=== PATIENT | female | born 1985 | race Caucasian/White ===

== ENCOUNTER 2018-05-07 16:54 | Emergency (ER) | payer BC, OTHER ==
[2018-05-07 17:25] VITALS: BP 132/83; PULSE 93; RESP 18; TEMP 98.7
[2018-05-07] MEDS ORDERED: PENICILLIN V POTASSIUM 250 MG TAB PO STA (18:10)
--- NOTE | 2018-05-07 18:21 | ED ---
ENT HPI - General Chief complaint: Dental/Oral Stated complaint: DENTAL PAIN Time Seen by Provider: 05/07/18 17:59 Source: patient, RN notes reviewed Mode of arrival: ambulatory Limitations: no limitations - History of Present Illness Initial comments: This is a 32-year-old female who presents to emergency department with chief complaint of dental pain. Patient reports right upper dental pain that started today. She states that she recently moved to the area and does not have a dentist. Denies fevers or chills. Does report upper mandible pain. Denies drainage. - Related Data Home Medications Medication Instructions Recorded Confirmed ALPRAZolam [Xanax] 1 mg PO DAILY PRN 11/08/15 11/08/15 FLUoxetine HCL [PROzac] 20 mg PO DAILY 11/08/15 11/08/15 traMADol HCL [Ultram] 50 mg PO BID PRN 11/08/15 11/08/15 Allergies Allergy/AdvReac Type Severity Reaction Status Date / Time No Known Allergies Allergy Verified 11/08/15 19:22 Review of Systems ROS Statement: Those systems with pertinent positive or pertinent negative responses have been documented in the HPI. ROS Other: All systems not noted in ROS Statement are negative. Constitutional: Denies: fever, chills ENT: Reports: dental pain. Denies: ear pain, throat pain Gastrointestinal: Denies: nausea, vomiting Neurological: Denies: headache Past Medical History Additional Past Medical History / Comment(s): migraine kumari History of Any Multi-Drug Resistant Organisms: None Reported Past Surgical History: Section, Tubal Ligation Past Psychological History: Anxiety, Depression Smoking Status: Current every day smoker Past Alcohol Use History: None Reported Past Drug Use History: None Reported General Exam - General Exam Comments Initial Comments: General: Awake and alert, well-developed; in no apparent distress. HEENT: Head atraumatic, normocephalic. Pupils are equal, round and reactive to light. Extraocular movements intact. Oropharynx moist with poor dentition throughout. Multiple dental caries and missing teeth. There is a small area of fluctuance gumline of tooth #6. No active drainage. Neck: Supple. Normal ROM. Cardiovascular: Regular rate and rhythm. No murmurs, rubs or gallops. Chest symmetrical. Respiratory: Lungs clear to auscultation bilaterally. No wheezes, rales or rhonchi. Normal respiratory effort with no use of accessory muscles. Musculoskeletal: Normal ROM, no tenderness bilateral upper and lower extremities. Ambulating normally. Skin: [place], warm and dry without rashes or lesions. Neurological: Alert and oriented x3. Speech is fluent and answers are appropriate. Psychiatric: Normal mood and affect. No overt signs of depression or anxiety noted. Limitations: no limitations Course Vital Signs 05/07/18 17:22 Temperature 98.7 F Pulse Rate 93 Respiratory 18 Rate Blood Pressure 132/83 O2 Sat by Pulse 100 Oximetry Medical Decision Making - Medical Decision Making This is a 32-year-old female who presents to the emergency department with chief complaint of dental pain. There is a small abscess noted along the gumline of tooth #6. Recommended I&D, however patient refuses. She will be started on a course of penicillin VK. She is advised to follow-up with a dentist. Vitals are stable and she is in no acute distress. Patient will be discharged home at this time. She is in agreement and voices understanding. All questions have been answered. Disposition Clinical Impression: Dental abscess Disposition: HOME SELF-CARE Condition: Fair Instructions: Dental Abscess (ED) Additional Instructions: Please take medications as prescribed. As discussed, please follow-up with a dentist. Please follow up with primary care provider within 1-2 days. Return to emergency department if symptoms should worsen or any concerns arise. Is patient prescribed a controlled substance at d/c from ED?: No Referrals: Benjamin Estrella MD [Primary Care Provider] - 1-2 days Time of Disposition: 18:20
== END 2018-05-07 18:37 | disposition home or self-care (01) ==
LOC: EC 16:54
DX: K04.7 Periapical abscess without sinus (principal); K02.9 Dental caries, unspecified; K08.409 Partial loss of teeth, unspecified cause, unspecified class; F32.9 Major depressive disorder, single episode, unspecified; F41.9 Anxiety disorder, unspecified; F17.200 Nicotine dependence, unspecified, uncomplicated; Z79.899 Other long term (current) drug therapy
CPT/HCPCS: 99282

== ENCOUNTER → 2018-06-01 | Outpatient (CLI) | payer BC ==
--- NOTE | 2018-06-01 16:10 | XR ---
Lumbar spine HISTORY: Chronic back pain 3 views of the lumbar spine Lumbar vertebral bodies show preserved height, alignment, and bone mineralization. Disc spaces are ma intained. Sclerosis in the posterior elements of the lumbar spine compatible with facet arthropathy. IMPRESSION: Suspect facet arthropathy, CT or MRI may be of benefit.
== END | disposition home or self-care (01) ==
LOC: RADXRMAIN 15:39
PROVIDERS: ATTEND Family Medicine
DX: M41.9 Scoliosis, unspecified (principal)
CPT/HCPCS: 72100

== ENCOUNTER 2019-02-03 21:29 | Emergency (ER) | payer BC, OTHER ==
[2019-02-03 21:33] VITALS: TEMP 99.5
[2019-02-03] MEDS ORDERED: DICYCLOMINE 20 MG TAB PO STA (21:51)
[2019-02-03] MEDS ORDERED: KETOROLAC 30 MG/ML 1 ML VIAL IVP STA (22:02)
[2019-02-03 22:15] LABS: Anisocytosis Slight; Basophils # (A) 0.1 k/uL (0-0.2); Basophils % (A) 1 %; Eosinophils # (A) 0.1 k/uL (0-0.7); Eosinophils % (A) 1 %; HCT 33.8 % (34.0-46.0); HGB 11.3 gm/dL (11.4-16.0); Lymphocytes # (A) 1.3 k/uL (1.0-4.8); Lymphocytes % (A) 10 %; MCH 24.6 pg (25.0-35.0); MCHC 33.3 g/dL (31.0-37.0); MCV 73.8 fL (80.0-100.0); Mean Platelet Volume 8.2; Microcytosis Moderate; Monocytes # (A) 0.4 k/uL (0-1.0); Monocytes % (A) 3 %; Neutrophils # (A) 11.2 k/uL (1.3-7.7); Neutrophils % (A) 86 %; Platelet Count 224 k/uL (150-450); RBC 4.58 m/uL (3.80-5.40); WBC 13.1 k/uL (3.8-10.6)
[2019-02-03 22:17] LABS: Appearance,Urine Clear (Clear); Bilirubin,Urine Negative (Negative); Blood,Urine Trace (Negative); Color,Urine Light Yellow; Glucose,Urine (UA) Negative (Negative); Ketones,Urine Negative (Negative); Leukocyte Esterase,Urine Trace (Negative); Mucus,Urine Rare /hpf; Nitrite,Urine Negative (Negative); PH, Urine 5.5 (5.0-8.0); Protein,Urine Negative (Negative); RBC,Urine 1 /hpf (0-5); Specific Gravity,Urine 1.005 (1.001-1.035); Squamous Epithelial Cell,Urine 1 /hpf (0-4); Urobilinogen,Urine <2.0 mg/dL (<2.0); WBC,Urine 3 /hpf (0-5)
[2019-02-03 22:27] LABS: ALT 9 U/L (9-52); AST 18 U/L (14-36); African American GFR (CKD) >90 (>60 ml/min/1.73 sqM); Albumin 3.9 g/dL (3.5-5.0); Alkaline Phosphatase 99 U/L (38-126); Amylase 48 U/L (30-110); Anion Gap 12 mmol/L; Blood Urea Nitrogen 2 mg/dL (7-17); Calcium 8.2 mg/dL (8.4-10.2); Carbon Dioxide 25 mmol/L (22-30); Chloride 103 mmol/L (98-107); Glucose 106 mg/dL (74-99); Sodium 140 mmol/L (137-145); Total Bilirubin 0.2 mg/dL (0.2-1.3); Total Protein 6.4 g/dL (6.3-8.2)
[2019-02-03 22:34] LABS: Potassium 2.6 mmol/L (3.5-5.1)
[2019-02-03] MEDS ORDERED: POTASSIUM CHLORIDE ER 20 MEQ TAB.ER PO STA (22:40)
--- NOTE | 2019-02-03 23:03 | XR ---
EXAM: XR Abdomen, 1 View CLINICAL HISTORY: ITS.REASON XR Reason: abdominal pain TECHNIQUE: Frontal supine view of the abdomen/pelvis. COMPARISON: 06/01/18. FINDINGS: Intraperitoneal space: No gross free air. Gastrointestinal tract: Scattered air-fluid levels. No significant dilatation. Bones/joints: Stable. IMPRESSION: Scattered air-fluid levels, can be seen with enteritis or diarrheal disease.
[2019-02-04] MEDS ORDERED: FLUCONAZOLE 150 MG TAB PO STA (00:12)
[2019-02-04] MEDS ORDERED: metroNIDAZOLE 500 MG TAB PO STA (00:12)
--- NOTE | 2019-02-04 00:14 | ED ---
Abdominal Pain HPI - General Source: patient Mode of arrival: ambulatory Limitations: no limitations <Ricci Lockwood - Last Filed: 02/04/19 05:23> <Mickey You - Last Filed: 02/04/19 07:30> - General Chief Complaint: Abdominal Pain Stated Complaint: Lower L Abd Pain Time Seen by Provider: 02/03/19 21:39 - History of Present Illness Initial Comments: Patient is a 33-year-old female presenting to the emergency department with a chief complaint of left lower quadrant pain. Patient reports she developed an o nset of pain in the left lower quadrant earlier today. Patient reports she feels general achiness all over the body. Patient also reports she has not had a menstrual period for over a month. Patient reports she developed nausea. Hours ago but has since resolved. Patient denies vomiting or diarrhea. Patient denies any radiation of the pain. Patient reports the pain is not related to food intake. Patient reports taking any medication to alleviate the symptoms. Patient is not currently on contraceptives. Patient also reports intermittent "whitish/nye" vaginal discharge but no foul smell. Patient denies chest that she had tubal ligation. (Ricci Lockwood) - Related Data Home Medications Medication Instructions Recorded Confirmed Lamictal (Unknown Dose) 1 tab PO HS 02/03/19 02/03/19 Vortioxetine Hydrobromide 10 mg PO DAILY 02/03/19 02/03/19 [Trintellix] Previous Rx's Medication Instructions Recorded Dicyclomine [Bentyl] 20 mg PO TID #30 tablet 02/04/19 Potassium Chloride 10 meq PO BID #10 capsule.er 02/04/19 metroNIDAZOLE [Flagyl] 500 mg PO BID #14 tab 02/04/19 Allergies Allergy/AdvReac Type Severity Reaction Status Date / Time No Known Allergies Allergy Verified 02/03/19 21:57 Review of Systems ROS Other: All systems not noted in ROS Statement are negative. <Ricci Lockwood - Last Filed: 02/04/19 05:23> ROS Other: All systems not noted in ROS Statement are negative. <Mickey You - Last Filed: 02/04/19 07:30> ROS Statement: Those systems with pertinent positive or pertinent negative responses have been documented in the HPI. Past Medical History Additional Past Medical History / Comment(s): migraine kumari History of Any Multi-Drug Resistant Organisms: None Reported Past Surgical History: Section, Tubal Ligation Past Psychological History: Anxiety, Depression Smoking Status: Current every day smoker Past Alcohol Use History: None Reported Past Drug Use History: None Reported <Ricci Lockwood - Last Filed: 02/04/19 05:23> General Exam Limitations: no limitations General appearance: alert, in no apparent distress Head exam: Present: atraumatic, normocephalic, normal inspection Eye exam: Present: normal appearance, PERRL, EOMI Pupils: Present: normal accommodation ENT exam: Present: normal exam, normal oropharynx, mucous membranes moist, TM's normal bilaterally, normal external ear exam Neck exam: Present: normal inspection, full ROM Respiratory exam: Present: normal lung sounds bilaterally Cardiovascular Exam: Present: regular rate, normal rhythm, normal heart sounds GI/Abdominal exam: Present: soft, tenderness (Suprapubic tenderness with palpation. Left lower quadrant tenderness), normal bowel sounds. Absent: guarding, rebound External exam: Present: normal external exam. Absent: erythema Speculum exam: Present: cervical discharge (Thin nye discharge). Absent: erythema, vaginal bleeding, foreign body, tissue, laceration Extremities exam: Present: normal inspection, full ROM Back exam: Present: normal inspection, full ROM Neurological exam: Present: alert, oriented X3 Psychiatric exam: Present: normal affect, normal mood Skin exam: Present: warm, intact, normal color <Ricci Lockwood - Last Filed: 02/04/19 05:23> Course Vital Signs 02/03/19 02/04/19 21:31 00:25 Temperature 99.5 F Pulse Rate 96 74 Respiratory 18 16 Rate Blood Pressure 144/90 136/86 O2 Sat by Pulse 97 98 Oximetry Medical Decision Making - Lab Data Result diagrams: 02/03/19 22:05 02/03/19 22:05 <Ricci Lockwood - Last Filed: 02/04/19 05:23> - Lab Data Result diagrams: 02/03/19 22:05 02/03/19 22:05 <Mickey You - Last Filed: 02/04/19 07:30> - Medical Decision Making Patient 33-year-old female presenting to emergency Department with a chief complaint of abdominal pain. Patient reports she has had a delay in her men strual period. Patient reports left lower quadrant abdominal pain with general body aches. This occurred today. Physical examination patient does appear to have mid left superior tenderness as well. Patient is afebrile. Patient has mild leukocytosis which could be related to possible enteritis based on KUB. CMP is indicative of hypokalemia. Patient got 40 mg of K-dur. Patient will be discharged with potassium chloride tablets to correct the hypokalemia. Speculum exam is indicative of possible bacterial vaginosis. Speculum exam is otherwise unremarkable. KUB is indicative of possible enteritis. I suspect the pain to be related to the ovary, possibly an ovarian cyst. Patient was given Bentyl and Toradol for pain. Patient reports improvement in symptoms. Patient will be treated for bacterial vaginosis with Flagyl. Patient advised not to drink alcohol while taking the medication. Patient also reports that she gets yeast infections after using in the buttocks. Patient given Diflucan prophylactically. Patient advised to follow-up with a manufacturing support engineer. Patient's vitals are stable on discharge. Strict return parameters were thoroughly discussed with patient was understanding and agreeable. Case discussed physician. (Ricci Lockwood) I saw this patient in conjunction with the physician front end assistant. I performed independent history and physical exam. Agree with case management. (Mickey You) - Lab Data Lab Results 02/03/19 02/03/19 02/03/19 Range/Units 22:05 22:05 22:05 WBC 13.1 H (3.8-10.6) k/uL RBC 4.58 (3.80-5.40) m/uL Hgb 11.3 L (11.4-16.0) gm/dL Hct 33.8 L (34.0-46.0) % MCV 73.8 L (80.0-100.0) fL MCH 24.6 L (25.0-35.0) pg MCHC 33.3 (31.0-37.0) g/dL RDW 19.0 H (11.5-15.5) % Plt Count 224 (150-450) k/uL Neutrophils % 86 % Lymphocytes % 10 % Monocytes % 3 % Eosinophils % 1 % Basophils % 1 % Neutrophils # 11.2 H (1.3-7.7) k/uL Lymphocytes # 1.3 (1.0-4.8) k/uL Monocytes # 0.4 (0-1.0) k/uL Eosinophils # 0.1 (0-0.7) k/uL Basophils # 0.1 (0-0.2) k/uL Anisocytosis Slight Microcytosis Moderate Sodium 140 (137-145) mmol/L Potassium 2.6 L* (3.5-5.1) mmol/L Chloride 103 (98-107) mmol/L Carbon Dioxide 25 (22-30) mmol/L Anion Gap 12 mmol/L BUN 2 L (7-17) mg/dL Creatinine 0.68 (0.52-1.04) mg/dL Est GFR (CKD-EPI)AfAm >90 (>60 ml/min/1.73 sqM) Est GFR (CKD-EPI)NonAf >90 (>60 ml/min/1.73 sqM) Glucose 106 H (74-99) mg/dL Calcium 8.2 L (8.4-10.2) mg/dL Magnesium (1.6-2.3) mg/dL Total Bilirubin 0.2 (0.2-1.3) mg/dL AST 18 (14-36) U/L ALT 9 (9-52) U/L Alkaline Phosphatase 99 (38-126) U/L Total Protein 6.4 (6.3-8.2) g/dL Albumin 3.9 (3.5-5.0) g/dL Amylase 48 (30-110) U/L Lipase 23 (23-300) U/L Urine Color Urine Appearance (Clear) Urine pH (5.0-8.0) Ur Specific [place] (1.001-1.035) Urine Protein (Negative) Urine Glucose (UA) (Negative) Urine Ketones (Negative) Urine Blood (Negative) Urine Nitrite (Negative) Urine Bilirubin (Negative) Urine Urobilinogen (<2.0) mg/dL Ur Leukocyte Esterase (Negative) Urine RBC (0-5) /hpf Urine WBC (0-5) /hpf Ur Squamous Epith Cells (0-4) /hpf Urine Mucus (None) /hpf Urine HCG, Qual Not Detected (Not Detectd) 02/03/19 02/03/19 Range/Units 22:05 22:30 WBC (3.8-10.6) k/uL RBC (3.80-5.40) m/uL Hgb (11.4-16.0) gm/dL Hct (34.0-46.0) % MCV (80.0-100.0) fL MCH (25.0-35.0) pg MCHC (31.0-37.0) g/dL RDW (11.5-15.5) % Plt Count (150-450) k/uL Neutrophils % % Lymphocytes % % Monocytes % % Eosinophils % % Basophils % % Neutrophils # (1.3-7.7) k/uL Lymphocytes # (1.0-4.8) k/uL Monocytes # (0-1.0) k/uL Eosinophils # (0-0.7) k/uL Basophils # (0-0.2) k/uL Anisocytosis Microcytosis Sodium (137-145) mmol/L Potassium (3.5-5.1) mmol/L Chloride (98-107) mmol/L Carbon Dioxide (22-30) mmol/L Anion Gap mmol/L BUN (7-17) mg/dL Creatinine (0.52-1.04) mg/dL Est GFR (CKD-EPI)AfAm (>60 ml/min/1.73 sqM) Est GFR (CKD-EPI)NonAf (>60 ml/min/1.73 sqM) Glucose (74-99) mg/dL Calcium (8.4-10.2) mg/dL Magnesium 1.8 (1.6-2.3) mg/dL Total Bilirubin (0.2-1.3) mg/dL AST (14-36) U/L ALT (9-52) U/L Alkaline Phosphatase (38-126) U/L Total Protein (6.3-8.2) g/dL Albumin (3.5-5.0) g/dL Amylase (30-110) U/L Lipase (23-300) U/L Urine Color Light Yellow Urine Appearance Clear (Clear) Urine pH 5.5 (5.0-8.0) Ur Specific [place] 1.005 (1.001-1.035) Urine Protein Negative (Negative) Urine Glucose (UA) Negative (Negative) Urine Ketones Negative (Negative) Urine Blood Trace H (Negative) Urine Nitrite Negative (Negative) Urine Bilirubin Negative (Negative) Urine Urobilinogen <2.0 (<2.0) mg/dL Ur Leukocyte Esterase Trace H (Negative) Urine RBC 1 (0-5) /hpf Urine WBC 3 (0-5) /hpf Ur Squamous Epith Cells 1 (0-4) /hpf Urine Mucus Rare H (None) /hpf Urine HCG, Qual (Not Detectd) Disposition Is patient prescribed a controlled substance at d/c from ED?: No Time of Disposition: 00:13 <Ricci Lockwood - Last Filed: 02/04/19 05:23> <Mickey You - Last Filed: 02/04/19 07:30> Clinical Impression: Left lower quadrant abdominal pain, Bacterial vaginosis Disposition: HOME SELF-CARE Condition: Stable Instructions (If sedation given, give patient instructions): Abdominal Pain (ED ) Additional Instructions: Please take prescribed medication as directed. Please follow up with a manufacturing support engineer. Please return to emergency department if symptoms worsen. Prescriptions: Dicyclomine [Bentyl] 20 mg PO TID #30 tablet metroNIDAZOLE [Flagyl] 500 mg PO BID #14 tab Potassium Chloride 10 meq PO BID #10 capsule.er Referrals: Benjamin Estrella MD [Primary Care Provider] - 1-2 days Hiram Agarwal DO [Doctor of Osteopathic Medicine] - 1-2 days
[2019-02-04 00:26] VITALS: BP 136/86; PULSE 74; RESP 16
[2019-02-05 13:43] LABS: N. gonorrhoeae,PCR Negative (Neg,Equiv); Neisseria Source Cervix
[2019-02-05 13:47] LABS: C. trachomatis,PCR Negative (Neg,Equiv); Chlamydia trachomatis Source Cervix
== END 2019-02-04 00:26 | disposition home or self-care (01) ==
LOC: EC 21:29
DX: N76.0 Acute vaginitis (principal); R10.32 Left lower quadrant pain; D72.829 Elevated white blood cell count, unspecified; E87.6 Hypokalemia; F41.9 Anxiety disorder, unspecified; F32.9 Major depressive disorder, single episode, unspecified; F17.200 Nicotine dependence, unspecified, uncomplicated; Z79.899 Other long term (current) drug therapy; Z98.51 Tubal ligation status; Z98.890 Other specified postprocedural states
CPT/HCPCS: 36415; 80053; 82150; 83690; 83735; 85025; 81001; 81025; 74018; 99284; 96374; J1885; 87491; 87591

== ENCOUNTER 2019-03-06 21:50 | Emergency (ER) | payer OTHER ==
[2019-03-06 21:55] VITALS: BP 148/86; PULSE 75; RESP 18; TEMP 99.7
[2019-03-06] MEDS ORDERED: NAPROXEN 250 MG TAB PO STA (22:36)
--- NOTE | 2019-03-06 22:51 | XR ---
EXAMINATION TYPE: XR knee complete RT DATE OF EXAM: 03/06/2019 COMPARISON: NONE HISTORY: Knee injury and pain TECHNIQUE: 3 views FINDINGS: I see no fracture nor dislocation. Joint spaces are normal. There are no pathologic calcifi cations. IMPRESSION: Negative right knee exam.
--- NOTE | 2019-03-06 22:51 | ED ---
Lower Extremity Injury HPI - General Chief Complaint: Extremity Injury, Lower Stated Complaint: Knee swelling Time Seen by Provider: 03/06/19 22:01 Source: patient Mode of arrival: ambulatory Limitations: no limitations - History of Present Illness Initial Comments: 33-year-old female patient presents to the emergency department today for evaluation of right knee pain and swelling. Patient states she has been having problems with the knee for the last month. 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 Patient states she's been having problems since. Patient states she intermittent leg is swelling to the area. Denies taking any medication for her symptoms. Denies any redness to the joint. Denies fever or chills. Denies any history of injury to the knee. Patient denies any headache, neck pain, back pain, chest pain, shortness of breath, dizziness, weakness, abdominal pain, nausea, vomiting, or difficulties with bowel movements or urination. - Related Data Home Medications Medication Instructions Recorded Confirmed Lamictal (Unknown Dose) 1 tab PO HS 02/03/19 02/03/19 Vortioxetine Hydrobromide 10 mg PO DAILY 02/03/19 02/03/19 [Trintellix] Previous Rx's Medication Instructions Recorded Dicyclomine [Bentyl] 20 mg PO TID #30 tablet 02/04/19 Potassium Chloride 10 meq PO BID #10 capsule.er 02/04/19 metroNIDAZOLE [Flagyl] 500 mg PO BID #14 tab 02/04/19 Naproxen [EC-Naprosyn] 500 mg PO BID PRN #30 tablet. 03/06/19 Allergies Allergy/AdvReac Type Severity Reaction Status Date / Time No Known Allergies Allergy Verified 03/06/19 21:55 Review of Systems ROS Statement: Those systems with pertinent positive or pertinent negative responses have been documented in the HPI. ROS Other: All systems not noted in ROS Statement are negative. Past Medical History Additional Past Medical History / Comment(s): migraine kumari History of Any Multi-Drug Resistant Organisms: None Reported Past Surgical History: Section, Tubal Ligation Past Psychological History: Anxiety, Depression Smoking Status: Current every day smoker Past Alcohol Use History: None Reported Past Drug Use History: None Reported General Exam Limitations: no limitations General appearance: alert, in no apparent distress, other (Physical well- developed, well-nourished adult female patient in no acute distress. Vital signs upon presentation are temperature 99.7F, pulse 75, respirations 18, blood pressure 148/86, pulse ox 98% on room air.) Respiratory exam: Present: normal lung sounds bilaterally. Absent: respiratory distress, wheezes, rales, rhonchi, stridor Cardiovascular Exam: Present: regular rate, normal rhythm, normal heart sounds. Absent: systolic murmur, diastolic murmur, rubs, gallop, clicks Extremities exam: Present: full ROM, normal capillary refill, other (No pain or laxity with valgus or varus maneuvers. There is soft tissue swelling surrounding the right knee. No erythema. Skin to the leg is pink, warm, dry. Cap refills less than 3 seconds. Pedal pulses are 2+ and equal bilaterally.). Absent: normal inspection, tenderness, pedal edema, joint swelling, calf tenderness Neurological exam: Present: alert, oriented X3, CN II-XII intact Psychiatric exam: Present: normal affect, normal mood Skin exam: Present: warm, dry, intact, normal color. Absent: rash Course Vital Signs 03/06/19 21:52 Temperature 99.7 F H Pulse Rate 75 Respiratory 18 Rate Blood Pressure 148/86 O2 Sat by Pulse 98 Oximetry Medical Decision Making - Medical Decision Making 33-year-old female patient presents to the emergency department today for evaluation of right knee pain and swelling for the last month. Physical examination did reveal mild soft tissue swelling. She did have full range of motion. No laxity or pain is valgus or varus maneuvers. X-ray was obtained and showed no acute abnormalities. Did apply Silvio wrap. She'll be given prescription for anti-inflammatory medication. She is instructed follow up with the primary care physician for recheck in 1-2 days per she is instructed follow up with child protection specialist for further evaluation. Return parameters discussed in detail. She verbalizes understanding and agrees with this plan. - Radiology Data Radiology results: report reviewed, image reviewed 3 views of the right knee are obtained. Report was reviewed in its entirety. Impression by Dr. Raymundo shows negative right knee exam. Disposition Clinical Impression: Right knee pain Disposition: HOME SELF-CARE Condition: Good Instructions (If sedation given, give patient instructions): Knee Pain (ED) Additional Instructions: Use Silvio wrap for comfort and support. Take anti-inflammatory medications as directed to relieve symptoms. Keep knee elevated as much as possible. Follow- up with child protection specialist for further evaluation. Follow up with your primary care physician for recheck in 1-2 days. Return to the emergency department immediately for any new, worsening, or concerning symptoms. Prescriptions: Naproxen [EC-Naprosyn] 500 mg PO BID PRN #30 tablet.dr MICHELLE Reason: Pain Is patient prescribed a controlled substance at d/c from ED?: No Referrals: Sam Huggins MD [Primary Care Provider] - 1-2 days Jean Alvarado DO [Doctor of Osteopathic Medicine] - 1-2 days Time of Disposition: 22:57
== END 2019-03-06 23:15 | disposition home or self-care (01) ==
LOC: EC 21:50
DX: M25.561 Pain in right knee (principal); M25.461 Effusion, right knee; F41.9 Anxiety disorder, unspecified; F32.9 Major depressive disorder, single episode, unspecified; F17.200 Nicotine dependence, unspecified, uncomplicated; Z79.899 Other long term (current) drug therapy
CPT/HCPCS: 99283